=== PATIENT | male | born 1990 | race Two or more races ===

== ENCOUNTER 2021-07-25 03:51 | Emergency (ER) | payer OTHER, SELFPAY ==
[~2021-07-25] VITALS: Ht 180.3 cm; Wt 106.6 kg
[2021-07-25] MEDS ORDERED: DOXYCYCLINE 100 MG TAB/CAP PO ONE (06:45)
[2021-07-25] MEDS ORDERED: cefTRIAXone SOD 1,000 MG VL IM ONE (06:45)
[2021-07-25 08:10] VITALS: BP 130/78
== END 2021-07-25 07:38 | disposition home or self-care (01) ==
LOC: ER 03:51
DX: U07.1 COVID-19 (principal); J12.82 Pneumonia due to coronavirus disease 2019
CPT/HCPCS: 36415; 71045; 87426; J0696